=== PATIENT | female | born 1960 | race Caucasian/White ===

== ENCOUNTER 2017-08-17 14:28 | Inpatient (IN) | payer MEDICAID ==
[~2017-08-17] VITALS: Ht 152.4 cm; Wt 90.0 kg
[~2017-08-17 14:28] MED LIST: ALLO300T79 PO; ASPI325T47 PO; ATO40T PO; CARI-277 PO; CLON0.1T PO; CYCL5TAB89 PO; DULO60CA PO; FUR40T PO; LACO100T PO; LEVE500T22 PO; METO-158 PO; OMEP20TA44 PO; SUM25T PO; TEMA15CA PO; [UNRECOGNIZED DRUG - CODE] PO
[2017-08-17] MEDS ORDERED: SODIUM CHLORIDE 0.9% 1,000 ML IV ONE (15:14)
[2017-08-17] MEDS ORDERED: ONDANSETRON HCL 4 MG/2 ML VIAL IV ONE (15:45)
[2017-08-17] MEDS ORDERED: MORPHINE SULF INJ 2 MG/ML SYRINGE 1ML IV ONE (15:45)
[2017-08-17 15:46] LABS: Basophils # (auto) 0.1 uL; Basophils % (auto) 0.9 % (0.0-2.0); Eosinophils # (auto) 0.2 uL; Eosinophils % (auto) 2.6 % (0.0-7.0); Hematocrit 35.4 % (36.0-46.0); Hemoglobin 11.4 g/dL (12.2-16.2); Lymphocytes # (auto) 1.9 uL; Lymphocytes % (auto) 21.6 % (10.0-50.0); Mean Corpuscular Hemoglobin 32.2 pg (28.0-32.0); Mean Corpuscular Hgb Conc. 32.1 g/dL (32.0-36.0); Mean Corpuscular Volume 100.4 fL (80.0-100.0); Mean Platelet Volume 8.9 fL (6.9-10.8); Monocytes # (auto) 0.8 uL; Monocytes % (auto) 8.7 % (0.0-12.0); Neutrophils # (auto) 5.9 uL; Neutrophils % (auto) 66.2 % (37.0-80.0); Nucleated Red Blood Cells % 0.3 %; Platelet Count (auto) 261 10^3/uL (140-450); Red Cell Distribution Width 13.7 % (11.8-14.3)
[2017-08-17 15:59] LABS: Albumin 3.7 g/dL (3.4-5.0); Anion Gap 11 (5-15); Aspartate Aminotransferase 13 U/L (15-37); BUN/Creatinine Ratio 30.4; Blood Urea Nitrogen 41 mg/dL (7-18); Calcium 8.9 mg/dL (8.5-10.1); Carbon Dioxide 20 mmol/L (21-32); Chloride 109 mmol/L (98-107); GFR African American 52 mL/min; GFR Non-African American 43 mL/min; Glucose 102 mg/dL (74-106); Magnesium 2.5 mg/dL (1.6-2.6); Potassium 4.1 mmol/L (3.5-5.1); Sodium 140 mmol/L (136-145)
[2017-08-17 16:01] LABS: Alkaline Phosphatase 112 U/L (45-117); Bilirubin, Total 0.2 mg/dL (0.2-1.0); Total Protein 7.4 g/dL (6.4-8.2)
[2017-08-17 16:10] LABS: INR 0.99 (0.9-1.15); Partial Thromboplastin Time 26.6 sec (22.64-33.71); Prothrombin Time 10.8 sec (9.37-12.3)
[2017-08-17] MEDS ORDERED: LORazepam 0.5 MG TAB PO PRN (18:00)
[2017-08-17] MEDS ORDERED: CODEINE PO PRN ×2 (18:00→18:30)
[2017-08-17] MEDS ORDERED: TEMAZEPAM 15 MG CAP PO PRN (18:00)
[2017-08-17] MEDS ORDERED: ACETAMINOPHEN 500 MG TAB PO PRN (18:00)
[2017-08-17] MEDS ORDERED: ACETAMINOPHEN PO PRN ×2 (18:00→18:30)
[2017-08-17] MEDS ORDERED: LACTULOSE 20Gm/30ML SOLN PO PRN (18:00)
[2017-08-17] MEDS: MORPHINE SULF INJ 2 MG/ML SYRINGE 1ML IV PRN ×2 (18:13→22:19)
[2017-08-17] MEDS: ENOXAPARIN SOD 40 MG/0.4 ML SYRINGE SC SCH (18:24)
[2017-08-17] MEDS ORDERED: MORPHINE SULF INJ 2 MG/ML SYRINGE 1ML IV PRN (18:30)
[2017-08-17] MEDS ORDERED: NITROGLYCERIN 0.4 MG SL TAB SL PRN (18:30)
[2017-08-17 18:47] LABS: Cholesterol 157 mg/dL (< 200); HDL Cholesterol 33 mg/dL (40-59); LDL Cholesterol 88 mg/dL (< 100); Triglycerides 330 mg/dL (< 150)
[2017-08-17 19:55] LABS: Temperature: 21.5 C (20.0-25.0)
[2017-08-17 20:29] LABS: Temperature: 22.3 C (20.0-25.0)
[2017-08-17] MEDS ORDERED: CARVEDILOL 3.125 MG TAB PO SCH (22:00)
[2017-08-17] MEDS: cloNIDine HCL 0.1 MG TAB PO SCH (22:16)
[2017-08-17] MEDS: ATORVASTATIN 20 MG TAB PO SCH (22:16)
[2017-08-17] MEDS: CYCLOBENZAPRINE HCL 10 MG TAB PO SCH (22:17)
[2017-08-17] MEDS: LEVETIRACETAM 500 MG TAB PO SCH (22:18)
[2017-08-17] MEDS: LACOSAMIDE 50 MG TAB PO SCH (22:18)
[2017-08-17 23:52] VITALS: BP 130/62
[2017-08-18] MEDS ORDERED: MAGNSOL OR (00:39)
[2017-08-18] MEDS ORDERED: GABA-494 PO (00:39)
[2017-08-18] MEDS ORDERED: CALCTAB25 PO (00:39)
[2017-08-18] MEDS ORDERED: GEMF600T3 PO (00:39)
[2017-08-18] MEDS ORDERED: ZOLP10TA PO (00:39)
[2017-08-18 01:18] LABS: Urine Bilirubin Negative (Negative); Urine Blood Negative /uL (Negative); Urine Color Yellow (Yellow); Urine Glucose Normal (Normal); Urine Ketone Negative (Negative); Urine Nitrite Negative (Negative); Urine RBC 4 /hpf (0 - 4); Urine Squamous Epithelial Cell FEW /hpf (<5); Urine Urobilinogen Normal (Negative)
[2017-08-18 04:47] VITALS: BP 109/56
[2017-08-18] MEDS: MORPHINE SULF INJ 2 MG/ML SYRINGE 1ML IV PRN ×4 (06:05→23:00)
[2017-08-18] MEDS: CYCLOBENZAPRINE HCL 10 MG TAB PO SCH ×3 (06:05→22:13)
[2017-08-18 06:33] LABS: Basophils # (auto) 0 uL; Basophils % (auto) 0.5 % (0.0-2.0); Eosinophils # (auto) 0.3 uL; Eosinophils % (auto) 4.5 % (0.0-7.0); Hematocrit 32.4 % (36.0-46.0); Hemoglobin 10.7 g/dL (12.2-16.2); Lymphocytes # (auto) 2.4 uL; Lymphocytes % (auto) 39.4 % (10.0-50.0); Mean Corpuscular Hemoglobin 32.9 pg (28.0-32.0); Mean Corpuscular Hgb Conc. 32.9 g/dL (32.0-36.0); Mean Corpuscular Volume 100.1 fL (80.0-100.0); Mean Platelet Volume 8.9 fL (6.9-10.8); Monocytes # (auto) 0.6 uL; Monocytes % (auto) 10.5 % (0.0-12.0); Neutrophils # (auto) 2.7 uL; Neutrophils % (auto) 45.1 % (37.0-80.0); Nucleated Red Blood Cells % 0.1 %; Platelet Count (auto) 257 10^3/uL (140-450); Red Cell Distribution Width 13.6 % (11.8-14.3)
[2017-08-18 07:06] LABS: Albumin 3.4 g/dL (3.4-5.0); Alkaline Phosphatase 115 U/L (45-117); Anion Gap 7 (5-15); Aspartate Aminotransferase 9 U/L (15-37); BUN/Creatinine Ratio 32.2; Bilirubin, Total 0.2 mg/dL (0.2-1.0); Blood Urea Nitrogen 38 mg/dL (7-18); Calcium 8.6 mg/dL (8.5-10.1); Carbon Dioxide 23 mmol/L (21-32); Chloride 111 mmol/L (98-107); GFR African American 61 mL/min; GFR Non-African American 50 mL/min; Glucose 102 mg/dL (74-106); Potassium 3.9 mmol/L (3.5-5.1); Sodium 141 mmol/L (136-145)
[2017-08-18 07:46] LABS: B-Type Natriuretic Peptide 5.51 pg/mL (0-100)
[2017-08-18 07:52] LABS: Temperature: 21.9 C (20.0-25.0)
[2017-08-18 08:00] VITALS: BP 100/56
[2017-08-18] MEDS: LEVETIRACETAM 500 MG TAB PO SCH ×2 (08:40→22:13)
[2017-08-18] MEDS: ALLOPURINOL 300 MG TAB PO SCH (08:41)
[2017-08-18] MEDS: PANTOPRAZOLE 40 MG TAB PO SCH (08:42)
[2017-08-18] MEDS: DULoxetine HCL 30 MG CAP PO SCH (08:42)
[2017-08-18] MEDS: HYDROcodone-ACET 5/325MG TAB PO PRN (08:43)
[2017-08-18] MEDS: LACOSAMIDE 50 MG TAB PO SCH ×2 (08:44→22:14)
[2017-08-18] MEDS ORDERED: ASPirin 81 mg TAB PO SCH (10:00)
[2017-08-18] MEDS ORDERED: FUROSEMIDE 20 MG TAB PO SCH (10:00)
[2017-08-18] MEDS ORDERED: ASPirin-EC 325mg tab PO SCH (10:00)
[2017-08-18] MEDS: cloNIDine HCL 0.1 MG TAB PO SCH ×2 (10:00→22:13)
[2017-08-18 12:00] VITALS: BP 102/58
[2017-08-18] MEDS ORDERED: SODIUM CHLORIDE 0.9% 1,000 ML IV SCH (14:45)
[2017-08-18 17:00] VITALS: BP 100/52
[2017-08-18] MEDS: ENOXAPARIN SOD 40 MG/0.4 ML SYRINGE SC SCH (18:02)
[2017-08-18] MEDS: PROMETHAZINE HCL 25 MG/ML 1ML IV PRN (18:34)
[2017-08-18 22:00] VITALS: BP 116/60
[2017-08-18] MEDS: CARVEDILOL 3.125 MG TAB PO SCH (22:13)
[2017-08-18] MEDS: ATORVASTATIN 20 MG TAB PO SCH (22:14)
[2017-08-19] MEDS: HYDROcodone-ACET 5/325MG TAB PO PRN (04:15)
[2017-08-19 05:00] VITALS: BP 108/58
[2017-08-19 05:13] LABS: Urine Bilirubin Negative (Negative); Urine Blood Negative /uL (Negative); Urine Color Yellow (Yellow); Urine Glucose Normal (Normal); Urine Ketone Negative (Negative); Urine Nitrite Negative (Negative); Urine RBC 2 /hpf (0 - 4); Urine Squamous Epithelial Cell FEW /hpf (<5); Urine Urobilinogen Normal (Negative); Urine pH 5.5 (5.0-8.0)
[2017-08-19] MEDS: CYCLOBENZAPRINE HCL 10 MG TAB PO SCH ×3 (05:46→22:47)
[2017-08-19] MEDS: LEVETIRACETAM 500 MG TAB PO SCH ×2 (06:31→22:42)
[2017-08-19 07:42] VITALS: BP 117/61
[2017-08-19 07:53] LABS: BUN/Creatinine Ratio 28.3; Calcium 8.5 mg/dL (8.5-10.1); Potassium 3.8 mmol/L (3.5-5.1)
[2017-08-19] MEDS: MORPHINE SULF INJ 2 MG/ML SYRINGE 1ML IV PRN ×4 (08:22→22:33)
[2017-08-19] MEDS: cloNIDine HCL 0.1 MG TAB PO SCH ×2 (10:00→22:00)
[2017-08-19] MEDS ORDERED: ASPirin-EC 325mg tab PO SCH (10:00)
[2017-08-19] MEDS: LACOSAMIDE 50 MG TAB PO SCH ×2 (10:13→22:43)
[2017-08-19] MEDS: DULoxetine HCL 30 MG CAP PO SCH (10:13)
[2017-08-19] MEDS: ALLOPURINOL 300 MG TAB PO SCH (10:14)
[2017-08-19] MEDS: PANTOPRAZOLE 40 MG TAB PO SCH (10:14)
[2017-08-19] MEDS: CARVEDILOL 3.125 MG TAB PO SCH ×2 (10:14→22:44)
[2017-08-19] MEDS ORDERED: ASPirin-EC 81 mg tab PO ONE (11:15)
[2017-08-19 11:17] VITALS: BP 105/53
[2017-08-19] MEDS ORDERED: cefTRIAXone 1GM/50ML D5W 50 ML IV ONE (12:45)
[2017-08-19 13:44] LABS: Basophils # (auto) 0 uL; Basophils % (auto) 0.7 % (0.0-2.0); Eosinophils # (auto) 0.3 uL; Eosinophils % (auto) 5.1 % (0.0-7.0); Hematocrit 34.5 % (36.0-46.0); Hemoglobin 11.3 g/dL (12.2-16.2); Lymphocytes # (auto) 2.2 uL; Lymphocytes % (auto) 33.3 % (10.0-50.0); Mean Corpuscular Hemoglobin 32.7 pg (28.0-32.0); Mean Corpuscular Hgb Conc. 32.8 g/dL (32.0-36.0); Mean Corpuscular Volume 99.6 fL (80.0-100.0); Mean Platelet Volume 9.5 fL (6.9-10.8); Monocytes # (auto) 0.8 uL; Neutrophils # (auto) 3.3 uL; Neutrophils % (auto) 48.9 % (37.0-80.0); Nucleated Red Blood Cells % 0.3 %; Platelet Count (auto) 235 10^3/uL (140-450); Red Cell Distribution Width 14.1 % (11.8-14.3); White Blood Cell 6.7 10^3/uL (4.4-10.8)
[2017-08-19] MEDS: PROMETHAZINE HCL 25 MG/ML 1ML IV PRN ×2 (14:11→22:41)
[2017-08-19 16:24] VITALS: BP 115/65
[2017-08-19] MEDS: ENOXAPARIN SOD 40 MG/0.4 ML SYRINGE SC SCH (17:59)
[2017-08-19 22:00] VITALS: BP 117/59
[2017-08-19] MEDS: ATORVASTATIN 20 MG TAB PO SCH (22:45)
[2017-08-20 05:00] VITALS: BP 132/69
[2017-08-20] MEDS: CYCLOBENZAPRINE HCL 10 MG TAB PO SCH ×3 (06:24→22:01)
[2017-08-20] MEDS: LEVETIRACETAM 500 MG TAB PO SCH ×2 (06:25→21:59)
[2017-08-20] MEDS: HYDROcodone-ACET 5/325MG TAB PO PRN (06:39)
[2017-08-20] MEDS: cefTRIAXone 1GM/50ML D5W 50 ML IV SCH (08:52)
[2017-08-20 08:55] VITALS: BP 139/68
[2017-08-20] MEDS ORDERED: LORazepam 2MG/ML-1ML VIAL IV PRN (09:15)
[2017-08-20] MEDS: cloNIDine HCL 0.1 MG TAB PO SCH ×3 (10:00→22:00)
[2017-08-20] MEDS: ALLOPURINOL 300 MG TAB PO SCH (10:08)
[2017-08-20] MEDS: ASPirin-EC 81 mg tab PO SCH (10:09)
[2017-08-20] MEDS: DULoxetine HCL 30 MG CAP PO SCH (10:09)
[2017-08-20] MEDS: PANTOPRAZOLE 40 MG TAB PO SCH (10:09)
[2017-08-20] MEDS: CARVEDILOL 3.125 MG TAB PO SCH ×2 (10:09→22:01)
[2017-08-20] MEDS: LACOSAMIDE 50 MG TAB PO SCH ×2 (10:11→22:02)
[2017-08-20] MEDS: MORPHINE SULF INJ 2 MG/ML SYRINGE 1ML IV PRN ×4 (10:22→22:59)
[2017-08-20] MEDS: PROMETHAZINE HCL 25 MG/ML 1ML IV PRN ×4 (10:22→22:58)
[2017-08-20 13:37] VITALS: BP 101/56
[2017-08-20 17:00] VITALS: BP 106/72
[2017-08-20] MEDS: ENOXAPARIN SOD 40 MG/0.4 ML SYRINGE SC SCH (18:26)
[2017-08-20 22:00] VITALS: BP 124/59
[2017-08-20] MEDS: ATORVASTATIN 20 MG TAB PO SCH (22:04)
[2017-08-21 05:00] VITALS: BP 107/63
[2017-08-21] MEDS: MORPHINE SULF INJ 2 MG/ML SYRINGE 1ML IV PRN ×2 (05:29→09:26)
[2017-08-21] MEDS: PROMETHAZINE HCL 25 MG/ML 1ML IV PRN (05:30)
[2017-08-21] MEDS: CYCLOBENZAPRINE HCL 10 MG TAB PO SCH (06:52)
[2017-08-21] MEDS: LEVETIRACETAM 500 MG TAB PO SCH (06:53)
[2017-08-21 08:00] VITALS: BP 103/53
[2017-08-21 09:00] VITALS: BP 103/53
[2017-08-21] MEDS: cefTRIAXone 1GM/50ML D5W 50 ML IV SCH (09:26)
[2017-08-21] MEDS: CARVEDILOL 3.125 MG TAB PO SCH (10:00)
[2017-08-21] MEDS: cloNIDine HCL 0.1 MG TAB PO SCH (10:00)
[2017-08-21] MEDS: LACOSAMIDE 50 MG TAB PO SCH (10:00)
[2017-08-21] MEDS: DULoxetine HCL 30 MG CAP PO SCH (11:56)
[2017-08-21] MEDS: ALLOPURINOL 300 MG TAB PO SCH (11:56)
[2017-08-21] MEDS: PANTOPRAZOLE 40 MG TAB PO SCH (11:57)
[2017-08-21] MEDS: ASPirin-EC 81 mg tab PO SCH (11:57)
[2017-08-21 13:00] VITALS: BP 120/60
[2017-08-21 14:15] VITALS: BP 103/53
== END 2017-08-21 15:15 | disposition home health service (06) | DRG 469 ==
LOC: ER 14:28 → EDBD 14:28 → TELE 14:29 → TELE-EAST 19:40
PROVIDERS: ADMIT Internal Medicine; ATTEND Internal Medicine Pulmonary Disease
DX: N17.0 Acute kidney failure with tubular necrosis (principal); S09.90XA Unspecified injury of head, initial encounter; G40.409 Other generalized epilepsy and epileptic syndromes, not intractable, without status epilepticus; I13.0 Hypertensive heart and chronic kidney disease with heart failure and stage 1 through stage 4 chronic kidney disease, or unspecified chronic kidney disease; I50.9 Heart failure, unspecified; I69.354 Hemiplegia and hemiparesis following cerebral infarction affecting left non-dominant side; N18.9 Chronic kidney disease, unspecified; K21.9 Gastro-esophageal reflux disease without esophagitis; E78.5 Hyperlipidemia, unspecified; F07.81 Postconcussional syndrome; W18.39XA Other fall on same level, initial encounter; M54.2 Cervicalgia; F32.9 Major depressive disorder, single episode, unspecified; N39.0 Urinary tract infection, site not specified; M48.02 Spinal stenosis, cervical region; M10.9 Gout, unspecified; E66.9 Obesity, unspecified; Z80.0 Family history of malignant neoplasm of digestive organs; Z80.1 Family history of malignant neoplasm of trachea, bronchus and lung; Z80.3 Family history of malignant neoplasm of breast; Z80.41 Family history of malignant neoplasm of ovary; Z80.8 Family history of malignant neoplasm of other organs or systems; Z81.8 Family history of other mental and behavioral disorders; Z82.0 Family history of epilepsy and other diseases of the nervous system; Z82.3 Family history of stroke; Z82.49 Family history of ischemic heart disease and other diseases of the circulatory system; Z82.5 Family history of asthma and other chronic lower respiratory diseases; Z82.62 Family history of osteoporosis; Z87.442 Personal history of urinary calculi; Z83.3 Family history of diabetes mellitus; Z68.38 Body mass index [BMI] 38.0-38.9, adult; Z88.8 Allergy status to other drugs, medicaments and biological substances; Z88.2 Allergy status to sulfonamides; Z90.49 Acquired absence of other specified parts of digestive tract; Z90.710 Acquired absence of both cervix and uterus; Y93.89 Activity, other specified; Y92.098 Other place in other non-institutional residence as the place of occurrence of the external cause; Y99.8 Other external cause status
CPT/HCPCS: 36415; 70450; 71010; 72125; 80048; 80053; 80061; 81001; 82550; 82607; 82746; 83735; 83880; 84443; 84484; 85025; 85610; 85652; 85730; 87086; 93005; 93306; 93886; 94761; 95819; 96361; 96374; 96375; 97110; 97530; J0696; J2405

== ENCOUNTER 2017-10-14 23:10 | Emergency (ER) | payer MEDICAID ==
[~2017-10-14] VITALS: Ht 157.5 cm; Wt 99.8 kg
[~2017-10-14 23:10] MED LIST changes: -ASPI325T47 PO; +CALCTAB25 PO; -FUR40T PO; +GABA-494 PO; +GEMF600T3 PO; -LEVE500T22 PO; +MAGNSOL OR; -SUM25T PO; -TEMA15CA PO; +ZOLP10TA PO
[2017-10-15 01:58] LABS: Basophils # (auto) 0 uL; Basophils % (auto) 0.4 % (0.0-2.0); Eosinophils # (auto) 0.4 uL; Eosinophils % (auto) 4.7 % (0.0-7.0); Hematocrit 33.1 % (36.0-46.0); Hemoglobin 10.9 g/dL (12.2-16.2); Lymphocytes # (auto) 2.8 uL; Lymphocytes % (auto) 30.4 % (10.0-50.0); Mean Corpuscular Hemoglobin 32.8 pg (28.0-32.0); Mean Corpuscular Hgb Conc. 32.9 g/dL (32.0-36.0); Mean Corpuscular Volume 99.8 fL (80.0-100.0); Mean Platelet Volume 8.7 fL (6.9-10.8); Monocytes # (auto) 0.9 uL; Monocytes % (auto) 9.1 % (0.0-12.0); Neutrophils # (auto) 5.2 uL; Neutrophils % (auto) 55.4 % (37.0-80.0); Platelet Count (auto) 262 10^3/uL (140-450); Red Cell Distribution Width 14.2 % (11.8-14.3); White Blood Cell 9.3 10^3/uL (4.4-10.8)
[2017-10-15 02:14] LABS: INR 0.98 (0.9-1.15); Partial Thromboplastin Time 25.3 sec (22.64-33.71); Prothrombin Time 10.7 sec (9.37-12.3)
[2017-10-15 02:15] LABS: Albumin 3.4 g/dL (3.4-5.0); Anion Gap 10 (5-15); Aspartate Aminotransferase 10 U/L (15-37); BUN/Creatinine Ratio 23.6; Blood Urea Nitrogen 33 mg/dL (7-18); Calcium 8.6 mg/dL (8.5-10.1); Carbon Dioxide 22 mmol/L (21-32); Chloride 105 mmol/L (98-107); GFR African American 50 mL/min; GFR Non-African American 41 mL/min; Glucose 104 mg/dL (74-106); Potassium 4.8 mmol/L (3.5-5.1); Sodium 137 mmol/L (136-145)
[2017-10-15] MEDS ORDERED: ONDANSETRON HCL 4 MG/2 ML VIAL IV ONE (02:15)
[2017-10-15] MEDS ORDERED: MORPHINE SULF INJ 2 MG/ML SYRINGE 1ML IV ONE (02:15)
[2017-10-15 02:22] LABS: Alkaline Phosphatase 148 U/L (45-117); Bilirubin, Total 0.3 mg/dL (0.2-1.0); Total Protein 7.5 g/dL (6.4-8.2)
[2017-10-15 02:45] LABS: B-Type Natriuretic Peptide 20.3 pg/mL (0-100); Temperature: 22.4 C (20.0-25.0)
[2017-10-15 03:10] VITALS: BP 118/61
[2017-10-15 03:52] LABS: Urine Bilirubin Negative (Negative); Urine Blood Negative /uL (Negative); Urine Color Colorless (Yellow); Urine Glucose Normal (Normal); Urine Ketone Negative (Negative); Urine Nitrite Negative (Negative); Urine RBC 3 /hpf (0 - 4); Urine Squamous Epithelial Cell MOD /hpf (<5); Urine Urobilinogen Normal (Negative)
== END 2017-10-15 05:44 | disposition home or self-care (01) ==
LOC: EDBD 23:10 → ER 23:13
DX: J40 Bronchitis, not specified as acute or chronic (principal); N39.0 Urinary tract infection, site not specified; I50.9 Heart failure, unspecified; I11.0 Hypertensive heart disease with heart failure; M10.9 Gout, unspecified; K21.9 Gastro-esophageal reflux disease without esophagitis; Z86.73 Personal history of transient ischemic attack (TIA), and cerebral infarction without residual deficits; Z87.442 Personal history of urinary calculi; Z90.49 Acquired absence of other specified parts of digestive tract; Z90.710 Acquired absence of both cervix and uterus
CPT/HCPCS: 36415; 71010; 74176; 80053; 81001; 83690; 83880; 84484; 85025; 85610; 85730; 93005; 93971; 96374; 96375; 99285; J2270; J2405